=== PATIENT | male | born 1990 | race Caucasian/White ===

== ENCOUNTER → 2018-12-14 | Outpatient (CLI) | payer BC | LOC: FIMAGING 18:34 | PROVIDERS: ATTEND Psychiatry & Neurology Neurology | DX: R41.0 Disorientation, unspecified (principal); G47.50 Parasomnia, unspecified | CPT/HCPCS: 70551-PN ==

== ENCOUNTER → 2018-12-28 | Outpatient (CLI) | payer BC | LOC: FCPNEURO 07:39 ==